=== PATIENT | male | born 1975 | race Caucasian/White ===

== ENCOUNTER 2020-06-08 13:25 | Day surgery (SDC) | payer OTHER ==
[2020-06-08] MEDS ORDERED: Xylocaine 1% Vial 30 ML PF IJ ONE (13:26)
[2020-06-08] MEDS ORDERED: Depo-Medrol 40 MG/ML IM ONE (13:26)
[2020-06-08] MEDS ORDERED: BUPIVACAINE 0.5% VIAL IJ ONE (13:26)
--- NOTE | 2020-06-08 17:06 | XRAY ---
Indication: Bilateral SI joint injection. Intraoperative fluoroscopy provided for 31 seconds. 4 digital spot images submitted for interpretation demonstrates posterior needle tip projecting over the inferior left and right SI joint. Correlate with intraoperative findings/report.
--- NOTE | 2020-06-08 17:11 | XRAY ---
31 seconds of fluoroscopy was used in surgery for a bilateral SI joint injection.
== END 2020-06-08 15:58 | disposition home or self-care (01) ==
LOC: SDC-PAIN 13:25
PROVIDERS: ATTEND Psychiatry & Neurology Pain Medicine
DX: M46.1 Sacroiliitis, not elsewhere classified (principal); I10 Essential (primary) hypertension; K21.9 Gastro-esophageal reflux disease without esophagitis; M10.9 Gout, unspecified
CPT/HCPCS: 27096; 72202; 77002; G0260; J1030; J2001